=== PATIENT | female | born 2000 | race Asian ===

== ENCOUNTER 2025-02-02 10:21 | Inpatient (IN) ==
[2025-02-02 11:39] LABS: Appearance Urine Clear (Clear); Glucose Urine UA Negative (Negative)
[2025-02-02 12:09] LABS: Hematocrit (blood only) 35.7 % (37.0-47.0); Hemoglobin 12.3 g/dL (12.0-16.0); Immature Granulocytes # (auto) 0.01 K/uL (0.01-0.20); Immature Granulocytes % (auto) 0.2 %; Mean Corpuscular Hemoglobin 31.2 pg (25.0-34.0); Mean Corpuscular Volume 90.6 fL (80.0-100.0); Platelet Count 277 K/uL (130-400); RDW Standard Deviation 40.2 fL (36.4-46.3); Red Blood Count 3.94 M/uL (4.20-5.40); White Blood Count 4.66 K/ul (4.8-10.8)
--- NOTE | 2025-02-02 12:33 | Emergency Department Note ---
Impression & Plan Suicidal ideation, Insomnia ED Provider Note HISTORY OF PRESENT ILLNESS: Patient is a 24-year-old female presenting for mental health evaluation. Patient is a [employer] student. She reports that she has not been able to sleep for the last few days. States that she has been taking trazodone to try to help her sleep and has not been working. Reports that a few days ago she took extra medications and "the hopes that I would not wake up at all." She states that today she took trazodone at around midnight and still could not fall asleep and then took 1 dose of Ativan and 1 dose of another medication at around 8 AM and has still been unable to fall asleep. She denies any homicidal ideation. Denies any auditory or visual hallucinations. She was not trying to kill herself this morning. She states "I just want a fall asleep." She has been seen in outpatient setting with [facility]. No recent changes to medications. Patient denies ever being admitted to an inpatient psychiatric facility before. 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 States that in high school she did attempt suicide by overdosing on medications. Denies any visual or auditory hallucinations. ROS: as above PHYSICAL EXAM: Constitutional: Patient appears in no acute distress. HENT: Head: Normocephalic and atraumatic. Eyes: EOMI, PERRL Mouth/Throat: Mucous membranes moist. Neck: Trachea midline. Neck supple. Musculoskeletal: No edema, tenderness or deformity noted. Skin: Warm and dry. No rash, erythema, pallor or cyanosis Psychiatric: Flat affect. Makes poor eye contact. Neurological: Alert and keenly responsive. CN II-XII grossly intact, moving all extremities equally and fully. MDM: - Vitals signs showed tachycardia. - History obtained via patient. History as above. - Chronic conditions affecting care: Anxiety/depression - Differential diagnoses include, but are not limited to: Depression; psychosis; medication side effect; alcohol intoxication; drug intoxication; UTI - External medical records reviewed. - Laboratory workup interpreted by myself showed normal WBC; stable electrolytes other than slight hypokalemia; negative hCG; normal TSH; negative salicylate/acetaminophen/alcohol levels - COVID negative - UA negative for infection - UDS positive for MDMA - Patient seen in conjunction with behavioral health case management. Patient was agreeable to inpatient psychiatric admission is a 201. Bed search was initiated and referral up to [facility] inpatient unit [address] [place] [address] was made. Pending at this time. - Prior to disposition, care of patient was checked out to Dr. Jarquin following a discussion of the patient's course. ASSESSMENT AND PLAN: Diagnosis: Suicidal ideation; insomnia Past Med/Surg History Problem List (Updated 02/02/25 @ 14:27 by Suma Pagan MD) Insomnia (Acute) Suicidal ideation (Acute) Social History Smoking Status: Never smoker Feels Safe at Home: Yes Allergies Allergies Allergy/AdvReac Type Severity Reaction Status Date / Time No Known Allergies Allergy Unverified 02/02/25 12:05 Home Meds Home Medications Medication Instructions Recorded Confirmed fluoxetine 20 mg capsule 20 mg PO DAILY 02/02/25 02/02/25 quetiapine 12.5 mg PO HS 02/02/25 02/02/25 trazodone 50 mg tablet 50 mg PO HS PRN Insomnia 02/02/25 02/02/25 Results & Data (ED) Vital Signs Vital Signs - 24 hr 02/02/25 10:27 02/02/25 14:22 Temperature 36.5 C Temperature Source Temporal Artery Scan Pulse Rate 103 H Pulse Rate [Finger] 72 Pulse Rhythm [Finger] Regular Pulse Strength [Finger] Normal Respiratory Rate 16 Respiratory Effort / Characteristics Non-Labored Spontaneous Respiratory Depth Normal Respiratory Pattern Regular Blood Pressure 103/71 Blood Pressure [Right Arm] 91/61 L Blood Pressure Mean 81 Blood Pressure Mean [Right Arm] 71 Blood Pressure Position [Right Arm] Lying Pulse Oximetry 97 98 Oxygen Delivery Method Room Air Room Air Sepsis Recent Fever Within 48 Hours No Sepsis New/Unexplained Change in Mental Status N/A Sepsis Action Taken by Nursing No Action Required Laboratory Data 02/02/25 11:35 02/02/25 11:35 Lab Results 02/02/25 02/02/25 02/02/25 Range/Units 10:53 10:54 11:35 WBC 4.66 L (4.8-10.8) K/ul RBC 3.94 L (4.20-5.40) M/uL Hgb 12.3 (12.0-16.0) g/dL Hct 35.7 L (37.0-47.0) % MCV 90.6 (80.0-100.0) fL MCH 31.2 (25.0-34.0) pg MCHC 34.5 (32.0-36.0) g/dL RDW Std Deviation 40.2 (36.4-46.3) fL RDW Coeff of Jignesh 12.0 (11.5-14.5) % Plt Count 277 (130-400) K/uL MPV 9.2 L (9.4-12.4) fL Immature Gran % (Auto) 0.2 % Neut % (Auto) 41.7 % Lymph % (Auto) 44.8 % Isabella % (Auto) 6.0 % Eos % (Auto) 6.4 % Baso % (Auto) 0.9 % Neut # (Auto) 1.94 (1.40-6.50) K/uL Lymph # (Auto) 2.09 (1.20-3.40) K/uL Isabella # (Auto) 0.28 (0.11-0.59) K/uL Eos # (Auto) 0.30 (0.00-0.50) K/uL Baso # (Auto) 0.04 (0.00-0.20) K/uL Immature Gran # (Auto) 0.01 (0.01-0.20) K/uL Sodium 138 (136-145) mmol/L Potassium 3.4 L (3.5-5.1) mmol/L Chloride 108 H (98-107) mmol/L Carbon Dioxide 23 (21-32) mmol/L Anion Gap 7 (3-11) BUN 10 (6-23) mg/dl Creatinine 0.50 L (0.6-1.2) mg/dl Est Cr Clr Drug Dosing 125.4 ml/min eGFR 134.23 BUN/Creatinine Ratio 20.0 (10-20) Glucose 89 (70-99(Fasting)) mg/dl Calcium 8.9 (8.6-10.3) mg/dl Total Bilirubin 0.5 (0.2-1.0) mg/dl AST 13 (13-39) U/L ALT 9 (7-52) U/L Alkaline Phosphatase 59 (34-104) U/L Total Protein 6.8 (6.0-8.3) gm/dl Albumin 3.9 (3.4-5.0) gm/dl Globulin 2.9 (2.5-4.0) gm/dl Albumin/Globulin Ratio 1.3 (0.9-2) TSH 2.768 (0.300-4.500) uIu/ml Urine Color Yellow Urine Appearance Clear (Clear) Urine pH 6.0 (4.5-7.5) Ur Specific [place] 1.026 (1.000-1.030) Urine Protein Negative (Negative) Urine Glucose (UA) Negative (Negative) Urine Ketones Trace H (Negative) Urine Blood Negative (Negative) Urine Nitrite Negative (Negative) Urine Bilirubin Negative (Negative) Urine Urobilinogen Negative (Negative) Ur Leukocyte Esterase Negative (Negative) Urine Test Negative (Negative) Urine Comment Salicylates < 3.0 L (3.0-30) mg/dl Urine Opiates Screen Neg (Neg) Ur Methadone, Qual Neg (Neg) Urine Fentanyl Screen Neg (Neg) Acetaminophen < 3 L (10-30) ug/ml Urine Barbiturates Neg (Neg) Ur Phencyclidine (PCP) Neg (Neg) U Amphetamin/Meth Scrn Neg (Neg) MDMA (Ecstasy) Screen Pos H (Neg) U Benzodiazepines Scrn Neg (Neg) Ur Cocaine Metabolite Neg (Neg) U Marijuana (THC) Screen Neg (Neg) Ethyl Alcohol mg/dL < 10.0 (<10.0) mg/dl SARS-CoV-2, RNA, NAAT NEGATIVE (NEGATIVE) Discharge Plan Visit Data Chief Complaint: Mental Health Evaluation Stated Complaint: CHEST PAIN, HARD TO BREATHE, SUICIDAL THOUGHTS ED Provider: Suam Pagan Discharge Problem: Suicidal ideation, Insomnia Patient Disposition: Still a Patient Condition: Fair Forms Stand Alone Forms: [facility], Suicide Prevention Resources Prescriptions Prescriptions: No Action fluoxetine 20 mg capsule 20 mg PO DAILY trazodone 50 mg tablet 50 mg PO HS PRN (Reason: Insomnia) quetiapine 12.5 mg PO HS Referrals Referrals: [facility] [Primary Care Provider] -
[2025-02-02 12:43] LABS: Acetaminophen < 3 ug/ml (10-30); Salicylate < 3.0 mg/dl (3.0-30)
[2025-02-02 12:43] LABS: Amphetamines+Metham, Urine Neg (Neg); MDMA (Ecstacy), Urine Pos (Neg); Marijuana, Urine Neg (Neg)
[2025-02-02 12:49] LABS: Alanine Aminotransferase 9.0 U/L (7-52); Albumin Globulin Ratio 1.3 (0.9-2); Albumin Level 3.9 gm/dl (3.4-5.0); Alkaline Phosphatase 59.0 U/L (34-104); Anion Gap 7.0 (3-11); Bilirubin,Total 0.5 mg/dl (0.2-1.0); Blood Urea Nitrogen 10.0 mg/dl (6-23); Calcium 8.9 mg/dl (8.6-10.3); Carbon Dioxide 23.0 mmol/L (21-32); Chloride 108.0 mmol/L (98-107); Creatinine Clr Calc Pharmacy 125.4 ml/min; Globulin 2.9 gm/dl (2.5-4.0); Glucose 89.0 mg/dl (70-99(Fasting)); Potassium 3.4 mmol/L (3.5-5.1); Sodium 138.0 mmol/L (136-145); Total Protein 6.8 gm/dl (6.0-8.3)
[2025-02-02 13:03] LABS: Thyroid Stimulating Hormone 2.768 uIu/ml (0.300-4.500)
[2025-02-02] MEDS ORDERED: SODIUM CHLORIDE 0.65% NA SOLN 45 ML (OCEAN) PRN (18:56)
[2025-02-02] MEDS ORDERED: BISMUTH SUBSALICYLATE 262 MG CHEW PO PRN (18:56)
[2025-02-02] MEDS ORDERED: MAGNESIUM HYDROXIDE SUSP 30 ML UDC PO PRN (18:56)
[2025-02-02] MEDS ORDERED: ALUMINUM/MAGNESIUM SUSP 30 ML UDC PO PRN (18:56)
[2025-02-02] MEDS ORDERED: clonazePAM 0.5 MG TAB PO PRN (19:26)
--- NOTE | 2025-02-03 09:15 | History & Physical ---
Date of Service February 03, 2025 Impression / Recommendations Impression CHELY VANEGAS is a 24-year-old woman and international [employer] student from [place] who currently lives in on campus alone, has a history of chronic depression, anxiety, and insomnia starting this summer, and was admitted on 02/02/25 17:40 on a 302 involuntary commitment for depression and suicide attempt. Diagnostically consistent with unspecified depression with differential including major depressive disorder versus persistent depressive disorder (but sounds like mood had been better this summer prior to returning to college) as well as egenralized anxiety disorder with panic attacks and insomnia. Discussed medication treatment options in detail. Discussed risks, benefits and alternatives. Patient would like to start and consented to ongoing use of fluoxetine for depression/anxiety, ongoing use of clonazepam as off-label for sleep given prolonged recent use and uncertainty of safety of abrupt discontinuation due to unclear dosing from [place] script and mirtazapine for depression/anxiety/insomnia/increased appetite. Reviewed side effects including but not limited to: GI, TRAN, sexual side effects, and counseled on black box warning of potential for emergence of or increased SI and need to let staff know should this occur or should they feel unsafe. Also discussed importance of seeking emergency care following discharge if this side effect occurs in the future with fluoxetine; addictive potential/respiratory suppression/dizziness with clonazepam; sedation/weight gain with mirtazapine. Overall I spent a total of 75 minutes for this admission including review of chart records, review of labwork, direct evaluation of the patient (62 minutes), counseling the patient, ordering medication, risk assessment, discussion with the psychiatric liason RN and documentation in the electronic health record. (1) Depression with suicidal ideation: (2) Insomnia: (3) Suicidal ideation: (4) Overuse of medication: (5) Generalized anxiety disorder with panic attacks: Plan 02/03/2025: The patient was admitted to the [facility] ([facility] inpatient mental health unit) on q15 min checks (behavioral with suicide precautions) for safety. The patient will participate in group, recreational, and milieu therapies and will be offered additional individual and family sessions as clinically appropriate. -Medications: * continue fluoxetine 20mg * start mirtazapine 15mg HS * continue clonazepam-use dose of 0.25mg HS * discontinue Seroquel -Symptom questionnaires: MDQ, PHQ-9, OLI-7, [place] BPD, LUZ MARINA -SW to coordinate with student care and advocacy and [facility]S Inventory Assets Strengths: supportive relationships, wants to continue with schooling Needs: safety and stabilization, medication adjustment, additional coping skills, increased outpatient services Suicide Risk Level Suicide Risk Level: High-Moderate (q15 min suicide checks) (increased depression and two recent suicide attempts vs rehearsal behaviors with ambivalence about being alive, currently denies SI and feels safe in the hospital and feels able to ask for support if needed) Suicide Risk Level Comments: Risk Factors Assessment Male: No : No Do You Have Access To A Gun?: No Health Problems: No Mental Health Diagnoses: Yes Substance Use Disorders: No Previous Attempt: Yes Family History of Suicide: No Previous Psychiatric Hospitalization: No Hopelessness: Yes (some) Protective Factors Assessment 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 Chief Complaint "I needed time to think about that". History of Present Illness She presents for psychiatric admission for worsening depression and SI with rehearsal behaviors vs attempt by taking 3 extra doses of trazodone and then an extra dose of Seroquel and Klonopin with dual goal of getting to sleep and not waking up. 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 She's had a lot of pressure to apply for jobs and internships and feels overwhelmed by not having access to her electronics in the hospital. She reports feeling "neutral" about surviving her overdose attempt. She denies current SI which she attributes the improvement to thinking more about her goals and fulfilling her classes and "not spiraling" like she did in her dorm room. She finds she "overthinks a lot". 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 Suicidal thoughts started recently and have been coming and going. A days ago she took trazodone for the first time just to sleep and "I couldn't breath and extremely dizziness" and she researched side effects and saw this could happen so she stopped taking it. Then a few days ago she experienced SI and "I could not sleep" and "that's quite stressful" and "the second reason was I didn't want to wake up" so she took extra clonazepam (2 doses) and quetiapine (2 doses). She didn't research what would happen but she wanted to sleep and "I didn't want to wake up". The next morning when she did wake up she felt "neutral" about being alive. She endorses depressive symptoms including anhedonia, decreased motivation, hopelessness (she rates as 50/50), decreased energy, decreased appetite (she used to eat twice a day but recently only eating 0 to 1 meals per day), and decreased sleep ("my sleeping routine is really messed up", describes sleeping well when exhausted but sometimes she spends a lot of time worrying and struggles to fall asleep, on average sleeping 3-4 hours recently or not at all). She also endorses symptoms of anxiety including generalized worries, shakiness, easily overwhelmed and panic attacks. She is currently prescribed fluoxetine 20mg daily (just increased from 10mg to 20mg on 01/30/2025) and trazodone 50mg HS prn was also recently prescribed (01/30/2025, had side effects of breathing issues) and then from [place] has scripts for Klonopin of unknown dose (September 2024, just at bedtime for sleep, took every night) and Seroquel 12.5mg HS (September 2024, just for bedtime, took every night). She is also prescribed Xanax for panic attacks. She endorses history of trauma with occasional flashbacks never with night- terrors or flashbacks. Psychiatric ROS notable for no current nor history of symptoms of byron, psychosis, PTSD, OCD, self-harm nor eating disorder. Past Psychiatric History Current Psychiatric Diagnosis: Unspecified Depression Outpatient Services: [facility] for psychiatric medication (3-4 times) [facility] for therapy (4-5 times) Previous Psych Admissions: none Do You Have Access To A Gun?: No History of Previous Suicide Attempt: Yes Describe Attempts in the Past: 1x-~16 or 17 via cutting, more superficial cuts per her report Past Medication Trials: hx of "something else" "but I cannot remember what it is"-it was for depression/anxiety Past Head Trauma/Neuro History History of Concussion/Seizure: No Allergies Allergy/AdvReac Type Severity Reaction Status Date / Time No Known Allergies Allergy Unverified 02/03/25 11:28 Home Medications Medication Instructions Recorded Confirmed Type Klonopin HS 02/02/25 History fluoxetine 20 mg capsule 20 mg PO DAILY 02/02/25 02/02/25 History quetiapine 12.5 mg PO HS 02/02/25 History trazodone 50 mg tablet 50 mg PO HS PRN Insomnia 02/02/25 02/02/25 History Family History Family History of: Other-List under Comment (mother with insomnia and sees therapist every other week) Family Mental Health History Comment: Alcohol History Hx of Alcohol Use Over the Past 12 Months: No Smoking Use Have You Smoked or Used Tobacco Products in the Last 30 Days: No Smoking Status: Never smoker Substance History Hx of Prescription Med Misuse Over the Past 12 Months: No Hx of Over the Counter Med Misuse Over the Past 12 Months: No Hx of Inhalent Misuse Over the Past 12 Months: No Hx of Organic Substance Use Over the Past 12 Months: No Hx of Illegal Substances/Street Drug Use Over Past 12 Months: No Problems as a Result of Past Substance Use: None Identified Personal History Childhood: Parents live in [place], she's an only child Highest Grade Completed: Some College ([employer]) Employment Status: Student Marital Status: Single Number Of Children: none Beliefs That Will Affect Care: None Current Legal Problems: No Hx Legal Problems: No Additional Comments: Her parents know she is in the hospital Patient History Social History Smoking Status: Never smoker Preferred Language: Burkinan Communication Ability: Effective 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 Beliefs That Will Affect Care: None Feels Safe at Home: Yes Gender Identity: Female Assistive Devices: Glasses Review of Systems Review of Systems: All systems reviewed & are unremarkable except as noted in HPI & below Physical Exam Psychiatric: Orientation: alert and oriented x 3 Apperance: appropriately dressed and appropriately groomed Eye Contact: good eye contact Motor Behavior: no abnormal motor movements Speech: normal rate/rhythm/volume of speech Affect: + depressed affect, + anxious affect and + constricted affect Mood: + depressed mood and + anxious mood Thought Process: goal directed thought process Thought Content: reality based without delusions Suicidal Thoughts: denies suicidal thoughts (but s/p overdose/rehearsal behaviors), denies suicidal plan and denies suicidal intent Homicidal Thoughts: denies homicidal thoughts Hallucinations: no auditory hallucinations and no visual hallucinations Cognition: recent memory grossly intact, remote memory grossly intact, attention grossly intact and language grossly intact Estimated Intelligence: consistent with education level Insight: + fair insight Judgment: + fair judgement Vital Signs (Past 24 Hours): Last Vital Signs Temp 36.1 C L 02/03/25 06:44 Pulse 90 02/02/25 19:39 Resp 16 02/03/25 06:44 BP 82/58 L 02/03/25 06:47 Pulse Ox 98 02/03/25 06:44 O2 Del Method Room Air 02/03/25 06:44 Exam Statement: A physical exam was performed in the ED by Dr. Pagan for the purposes of medical clearance. I accept that physical as correct and adequate for the purposes of the inpatient physical exam. Results & Data ([facility]) Laboratory Results Laboratory Results - last 24 hr 02/02/25 02/02/25 02/02/25 10:53 10:54 11:35 WBC 4.66 L RBC 3.94 L Hgb 12.3 Hct 35.7 L MCV 90.6 MCH 31.2 MCHC 34.5 RDW Std Deviation 40.2 RDW Coeff of Jignesh 12.0 Plt Count 277 MPV 9.2 L Immature Gran % (Auto) 0.2 Neut % (Auto) 41.7 Lymph % (Auto) 44.8 White % (Auto) 6.0 Eos % (Auto) 6.4 Baso % (Auto) 0.9 Neut # (Auto) 1.94 Lymph # (Auto) 2.09 White # (Auto) 0.28 Eos # (Auto) 0.30 Baso # (Auto) 0.04 Immature Gran # (Auto) 0.01 Sodium 138 Potassium 3.4 L Chloride 108 H Carbon Dioxide 23 Anion Gap 7 BUN 10 Creatinine 0.50 L Est Cr Clr Drug Dosing 125.4 eGFR 134.23 BUN/Creatinine Ratio 20.0 Glucose 89 Calcium 8.9 Total Bilirubin 0.5 AST 13 ALT 9 Alkaline Phosphatase 59 Total Protein 6.8 Albumin 3.9 Globulin 2.9 Albumin/Globulin Ratio 1.3 TSH 2.768 Urine Color Yellow Urine Appearance Clear Urine pH 6.0 Ur Specific [place] 1.026 Urine Protein Negative Urine Glucose (UA) Negative Urine Ketones Trace H Urine Blood Negative Urine Nitrite Negative Urine Bilirubin Negative Urine Urobilinogen Negative Ur Leukocyte Esterase Negative Urine Test Negative Urine Comment Salicylates < 3.0 L Urine Opiates Screen Neg Ur Methadone, Qual Neg Urine Fentanyl Screen Neg Acetaminophen < 3 L Urine Barbiturates Neg Ur Phencyclidine (PCP) Neg U Amphetamin/Meth Scrn Neg Urine MDEA Pending MDMA (Ecstasy) Screen Pos H MDMA Pending Urine MDMA Pending U Benzodiazepines Scrn Neg Ur Cocaine Metabolite Neg U Marijuana (THC) Screen Neg Ethyl Alcohol mg/dL < 10.0 SARS-CoV-2, RNA, NAAT NEGATIVE Current Inpatient Medications Current Inpatient Medications: Current Inpatient Medications Acetaminophen (Acetaminophen 325 Mg Tab) 650 mg PO Q4H PRN PRN Reason: Headache or Minor Fever Stop: 03/04/25 18:55 Al Hydrox/Mg Hydrox/Simethicone (Aluminum/Magnesium Susp 30 Ml Udc) 30 ml PO Q4H PRN PRN Reason: GI Upset Stop: 03/04/25 18:55 Bismuth Subsalicylate (Bismuth Subsalicylate 262 Mg Chew) 2 tab PO Q30M PRN PRN Reason: Loose Stool/Diarrhea Stop: 03/04/25 18:55 Clonazepam (Clonazepam 0.5 Mg Tab) 0.25 mg PO BID PRN PRN Reason: panic attacks Stop: 03/04/25 19:25 Fluoxetine HCl (Fluoxetine Hcl 20 Mg Cap) 20 mg PO QAM THUY Stop: 03/05/25 08:59 Hydroxyzine HCl (Hydroxyzine Hcl 25 Mg Tab) 50 mg PO HSZ PRN PRN Reason: Insomnia Stop: 03/04/25 18:55 Hydroxyzine HCl (Hydroxyzine Hcl 25 Mg Tab) 25 mg PO Q4H PRN PRN Reason: Anxiety Stop: 03/04/25 18:55 Magnesium Hydroxide (Magnesium Hydroxide Susp 30 Ml Udc) 30 ml PO DAILY PRN PRN Reason: Constipation Stop: 03/04/25 18:55 Quetiapine Fumarate (Quetiapine Fumarate 25 Mg Tablet) 12.5 mg PO HS THUY Stop: 03/04/25 21:59 Last Admin: 02/02/25 21:03 Dose: 12.5 mg Sodium Chloride (Sodium Chloride 0.65% Na Soln 45 Ml ([place])) 1 - 2 sprays NA PRN PRN PRN Reason: Nasal Dryness/Congestion Stop: 03/04/25 18:55 Trazodone HCl (Trazodone Hcl 50 Mg Tab) 50 mg PO HS PRN PRN Reason: insomnia Stop: 03/04/25 19:25
[2025-02-03] MEDS ORDERED: MIRTAZAPINE TAB 15 MG TAB PO PRN (16:19)
[2025-02-03] MEDS: clonazePAM 0.5 MG TAB PO SCH (22:00)
[2025-02-03] MEDS: MIRTAZAPINE TAB 15 MG TAB PO SCH (22:01)
--- NOTE | 2025-02-04 09:02 | Psychiatric Progress Note ---
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 Diagnostically consistent with unspecified depression with differential including major depressive disorder versus persistent depressive disorder (but sounds like mood had been better this summer prior to returning to college) as well as generalized anxiety disorder with panic attacks and insomnia. A: Anxiety and engagement seem to be improving. Anxiety remains, but depressed mood is also improving. Sleep was better last night. Discussed the importance of balancing breaks/rest with productivity after discharge here, and patient was receptive to that feedback. Also discussed the importance of utilizing supports, and she is considering scheduling a support meeting with a close friend. No medication changes today, as she just started on mirtazapine last night. As needed Vistaril is available if anxiety continues. Blood pressures have been low, but we are suspecting she may need a smaller blood pressure cuff for an accurate reading, which nursing is looking into today. She is not reporting symptoms of hypotension, And is eating and drinking well. Overall, I spent a total of 35 minutes on this patient's care, including review of chart/records, direct evaluation of the patient, coordination with nursing, interdisciplinary team meeting, and documentation. (1) Depression with suicidal ideation: (2) Insomnia: (3) Suicidal ideation: (4) Overuse of medication: (5) Generalized anxiety disorder with panic attacks: Plan 02/04/25: Continue current medications and treatment. 02/03/2025: The patient was admitted to the [facility] on q15 min checks (behavioral with suicide precautions) for safety. The patient will participate in group, recreational, and milieu therapies and will be offered additional individual and family sessions as clinically appropriate. -Medications: * continue fluoxetine 20mg * start mirtazapine 15mg HS * continue clonazepam-use dose of 0.25mg HS * discontinue Seroquel -Symptom questionnaires: MDQ, PHQ-9, OLI-7, Wooten BPD, LUZ MARINA -SW to coordinate with student care and advocacy and CAPS Inventory Assets Strengths: supportive relationships, wants to continue with schooling Needs: safety and stabilization, medication adjustment, additional coping skills, increased outpatient services Suicide Risk Level Suicide Risk Level: High-Moderate (q15 min suicide checks) (increased depression and two recent suicide attempts vs rehearsal behaviors with ambivalence about being alive, currently denies SI and feels safe in the hospital and feels able to ask for support if needed) Suicide Risk Level Comments: Risk Factors Assessment Male: No : No Do You Have Access To A Gun?: No Health Problems: No Mental Health Diagnoses: Yes Substance Use Disorders: No Previous Attempt: Yes Family History of Suicide: No Previous Psychiatric Hospitalization: No Hopelessness: Yes (some) Protective Factors Assessment 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 Review of Systems Sleep Information Total Hours of Sleep: 6.25 Meal Information Percent Meal Consumed - Breakfast: 70 Percent Meal Consumed - Lunch: 100 Percent Meal Consumed - Dinner: 90 Subjective Subjective Patient was seen & assessed and interval progress reviewed with nursing and social work per report: attending groups mood 7-8 and "bored" wants 302 expunged adamantly denying SI good appetite sleeping well out of room declined support meeting d/c thursday? I met with the patient privately in her room. She says she is starting to feel better. She commented that she slept very well, and that has improved her mood today. She did not feel groggy this morning. Discussed her ongoing stressors. She acknowledges it is "nice to get a break" from her devices and the constant pressure to be applying for internships and checking the status of those applications. She graduates in the spring or summer of this year. 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 She has been attending groups and appreciates it. She used the exercise bike this morning. She is very concerned about the cost of her stay here, and requested specific information about whether meeting individually with staff would increase the cost. She wrote notes from group that she attended it, and has been reflecting on her past experiences and how they affect her anxiety. She is hopeful for a short stay. She denies any further suicidal ideation. Anxiety remains moderate. No side effects such as GI symptoms, headaches, tremor or any other physical symptoms. She is planning on several friends visiting today. Physical Exam Psychiatric Orientation: alert, oriented x 3 and cooperative Apperance: appropriately dressed, appropriately groomed and appeared stated age Eye Contact: good eye contact Motor Behavior: steady gait and station and no abnormal motor movements; n tremor Speech: normal rate/rhythm/volume of speech Affect: + anxious affect and + constricted affect Mood: + anxious mood Thought Process: goal directed thought process, linear/logical thought process and clear/coherent thought process Thought Content: + cognitive distortions and reality based without delusions Suicidal Thoughts: denies suicidal thoughts, denies suicidal plan and denies suicidal intent Homicidal Thoughts: denies homicidal thoughts, denies homicidal plan and denies homicidal intent Hallucinations: no auditory hallucinations and no visual hallucinations Cognition: recent memory grossly intact, remote memory grossly intact, attention grossly intact and language grossly intact Estimated Intelligence: consistent with education level Insight: good insight Judgment: good judgement Vital Signs (Past 24 Hours) Last Vital Signs Temp 36.6 C 02/04/25 06:17 Pulse 69 02/04/25 06:19 Resp 16 02/04/25 06:17 BP 88/66 L 02/04/25 06:19 Pulse Ox 98 02/03/25 06:44 O2 Del Method Room Air 02/03/25 06:44 Results & Data ([facility]) Current Inpatient Medications Current Inpatient Medications: Current Inpatient Medications Acetaminophen (Acetaminophen 325 Mg Tab) 650 mg PO Q4H PRN PRN Reason: Headache or Minor Fever Stop: 03/04/25 18:55 Al Hydrox/Mg Hydrox/Simethicone (Aluminum/Magnesium Susp 30 Ml Udc) 30 ml PO Q4H PRN PRN Reason: GI Upset Stop: 03/04/25 18:55 Bismuth Subsalicylate (Bismuth Subsalicylate 262 Mg Chew) 2 tab PO Q30M PRN PRN Reason: Loose Stool/Diarrhea Stop: 03/04/25 18:55 Clonazepam (Clonazepam 0.5 Mg Tab) 0.25 mg PO HS THUY Stop: 03/05/25 21:59 Last Admin: 02/03/25 22:00 Dose: 0.25 mg Fluoxetine HCl (Fluoxetine Hcl 20 Mg Cap) 20 mg PO QAM THUY Stop: 03/05/25 08:59 Last Admin: 02/03/25 09:49 Dose: 20 mg Hydroxyzine HCl (Hydroxyzine Hcl 25 Mg Tab) 50 mg PO HSZ PRN PRN Reason: Insomnia Stop: 03/04/25 18:55 Hydroxyzine HCl (Hydroxyzine Hcl 25 Mg Tab) 25 mg PO Q4H PRN PRN Reason: Anxiety Stop: 03/04/25 18:55 Magnesium Hydroxide (Magnesium Hydroxide Susp 30 Ml Udc) 30 ml PO DAILY PRN PRN Reason: Constipation Stop: 03/04/25 18:55 Mirtazapine (Mirtazapine Tab 15 Mg Tab) 15 mg PO HS THUY Stop: 03/05/25 21:59 Last Admin: 02/03/25 22:01 Dose: 15 mg Mirtazapine (Mirtazapine Tab 15 Mg Tab) 15 mg PO HS PRN PRN Reason: insomnia Stop: 03/05/25 16:18 Sodium Chloride (Sodium Chloride 0.65% Na Soln 45 Ml ([place])) 1 - 2 sprays NA PRN PRN PRN Reason: Nasal Dryness/Congestion Stop: 03/04/25 18:55 Mental Health & Subst Abuse Tx Psychiatrist Name of Psychiatrist: KAROL-Dr. Juanita Vogt Psychiatrist's Date Of Appointment With Psychiatric Provider: 02/09 Time of Appointment with Psychiatrist: [place] Therapist Name of Therapist: KAROL Therapist's Post Discharge Appointments Primary Care Physician Name Of Family Doctor/PCP: Juan Miguel Contact Information Discharge Discharge Address: [place] [address]
--- NOTE | 2025-02-05 09:45 | Psychiatric Progress Note ---
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 Diagnostically consistent with unspecified depression with differential including major depressive disorder versus persistent depressive disorder (but sounds like mood had been better this summer prior to returning to college) as well as generalized anxiety disorder with panic attacks and insomnia. A: Discussed together the benefits of conscientiousness and preparedness versus the drawbacks of excessive overthinking, which can actually decrease indecisiveness and problem-solving. Patient was able to self identify signs that she is entering an unhelpful level of overthinking. reviewed ways she can bring herself down from an anxious state and put a stop to overthinking. Also encouraged her to complete her safety plan today. Since she is having some oversedation, will decrease Remeron and see if that is helpful. Discussed that she can also continue to adjust that dose with her outpatient provider. Planning for discharge tomorrow after her support meeting. Overall, I spent a total of 37 minutes on this patient's care, including review of chart/records, direct evaluation of the patient, coordination with nursing, interdisciplinary team meeting, and documentation. (1) Depression with suicidal ideation: (2) Insomnia: (3) Suicidal ideation: (4) Overuse of medication: (5) Generalized anxiety disorder with panic attacks: Plan 02/05/25: Decrease Remeron to 7.5 mg nightly 02/04/25: Continue current medications and treatment. 02/03/2025: The patient was admitted to the [facility] ([facility] mental health unit) on q15 min checks (behavioral with suicide precautions) for safety. The patient will participate in group, recreational, and milieu therapies and will be offered additional individual and family sessions as clinically appropriate. -Medications: * continue fluoxetine 20mg * start mirtazapine 15mg HS * continue clonazepam-use dose of 0.25mg HS * discontinue Seroquel -Symptom questionnaires: MDQ, PHQ-9, OLI-7, Wooten BPD, LUZ MARINA -SW to coordinate with student care and advocacy and CAPS Inventory Assets Strengths: supportive relationships, wants to continue with schooling Needs: safety and stabilization, medication adjustment, additional coping skills, increased outpatient services Suicide Risk Level Suicide Risk Level: Moderate (q15 min suicide checks) (increased depression and two recent suicide attempts vs rehearsal behaviors with ambivalence about being alive, currently denies SI and feels safe in the hospital and feels able to ask for support if needed) Suicide Risk Level Comments: Risk Factors Assessment Male: No : No Do You Have Access To A Gun?: No Health Problems: No Mental Health Diagnoses: Yes Substance Use Disorders: No Previous Attempt: Yes Family History of Suicide: No Previous Psychiatric Hospitalization: No Hopelessness: Yes (some) Protective Factors Assessment 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 Review of Systems Sleep Information Total Hours of Sleep: 8 Meal Information Percent Meal Consumed - Breakfast: 70 Percent Meal Consumed - Lunch: 0 Percent Meal Consumed - Dinner: 85 Subjective Subjective Patient was seen & assessed and interval progress reviewed with nursing and social work Per report: came out of room more towards the end of the day attended groups and participated well rated mood 10/02 and feeling "calmer" 2 visitors (both friends) - appeared to go well. She showed positive affect and was laughing. Spoke with parents last night Denying SI Scheduled support mtg for tomorrow AM no BM since 02/01 I met with the patient privately in her room. She says 'I'm feeling a little calmer." Also feels that depression is getting better. However she does feel tired today. She says she slept 9 or 10 hours, and was so tired she was trying to nap before lunch. She does report that visits with her friends went well yesterday. She is feeling ready to return home. Discussed her increasing awareness of her own symptoms. She identified that she "is an over thinker." She also identified a goal of minimizing rumination at bedtime, so she can prio ritize sleep. She also plans to go to the gym regularly as a coping skill. She denies any side effects other than feeling tired. She is not having any further suicidal ideation. Physical Exam Psychiatric Orientation: alert, oriented x 3 and cooperative Apperance: appropriately dressed, appropriately groomed and appeared stated age Eye Contact: good eye contact Motor Behavior: steady gait and station and no abnormal motor movements; n tremor Speech: normal rate/rhythm/volume of speech Affect: + anxious affect Full range. Brightens intermittently, does appear anxious at times. Thought Process: goal directed thought process, linear/logical thought process and clear/coherent thought process Thought Content: reality based without delusions + anxious rumination Suicidal Thoughts: denies suicidal thoughts, denies suicidal plan and denies suicidal intent Homicidal Thoughts: denies homicidal thoughts, denies homicidal plan and denies homicidal intent Hallucinations: no auditory hallucinations and no visual hallucinations Cognition: recent memory grossly intact, remote memory grossly intact, attention grossly intact and language grossly intact Estimated Intelligence: consistent with education level Insight: good insight Judgment: good judgement Vital Signs (Past 24 Hours) Last Vital Signs Temp 35.4 C L 02/05/25 06:00 Pulse 60 02/05/25 06:01 Resp 18 02/05/25 06:00 BP 92/66 L 02/05/25 06:01 Pulse Ox 100 02/05/25 06:00 O2 Del Method Room Air 02/05/25 06:00 Results & Data ([facility]) Current Inpatient Medications Current Inpatient Medications: Current Inpatient Medications Acetaminophen (Acetaminophen 325 Mg Tab) 650 mg PO Q4H PRN PRN Reason: Headache or Minor Fever Stop: 03/04/25 18:55 Al Hydrox/Mg Hydrox/Simethicone (Aluminum/Magnesium Susp 30 Ml Udc) 30 ml PO Q4H PRN PRN Reason: GI Upset Stop: 03/04/25 18:55 Bismuth Subsalicylate (Bismuth Subsalicylate 262 Mg Chew) 2 tab PO Q30M PRN PRN Reason: Loose Stool/Diarrhea Stop: 03/04/25 18:55 Clonazepam (Clonazepam 0.5 Mg Tab) 0.25 mg PO HS THUY Stop: 03/05/25 21:59 Last Admin: 02/04/25 21:37 Dose: 0.25 mg Fluoxetine HCl (Fluoxetine Hcl 20 Mg Cap) 20 mg PO QAM THUY Stop: 03/05/25 08:59 Last Admin: 02/05/25 09:39 Dose: 20 mg Hydroxyzine HCl (Hydroxyzine Hcl 25 Mg Tab) 50 mg PO HSZ PRN PRN Reason: Insomnia Stop: 03/04/25 18:55 Hydroxyzine HCl (Hydroxyzine Hcl 25 Mg Tab) 25 mg PO Q4H PRN PRN Reason: Anxiety Stop: 03/04/25 18:55 Magnesium Hydroxide (Magnesium Hydroxide Susp 30 Ml Udc) 30 ml PO DAILY PRN PRN Reason: Constipation Stop: 03/04/25 18:55 Mirtazapine (Mirtazapine Tab 15 Mg Tab) 15 mg PO HS THUY Stop: 03/05/25 21:59 Last Admin: 02/04/25 21:37 Dose: 15 mg Mirtazapine (Mirtazapine Tab 15 Mg Tab) 15 mg PO HS PRN PRN Reason: insomnia Stop: 03/05/25 16:18 Sodium Chloride (Sodium Chloride 0.65% Na Soln 45 Ml ([place])) 1 - 2 sprays NA PRN PRN PRN Reason: Nasal Dryness/Congestion Stop: 03/04/25 18:55 Mental Health & Subst Abuse Tx Psychiatrist Name of Psychiatrist: KAROL-Dr. Juanita Vogt Psychiatrist's Date Of Appointment With Psychiatric Provider: 02/09 Time of Appointment with Psychiatrist: 11 Therapist Name of Therapist: KAROL Therapist's Post Discharge Appointments Primary Care Physician Name Of Family Doctor/PCP: [facility] Contact [facility] [address]
[2025-02-05 12:35] LABS: MDA negative; MDEA negative; MDMA (Ecstasy) Urine, Confirm negative
[2025-02-05] MEDS: MIRTAZAPINE TAB 15 MG TAB PO SCH (20:43)
[2025-02-06] MEDS: ACETAMINOPHEN 325 MG TAB PO PRN (04:45)
[2025-02-06] MEDS ORDERED: DESTROY THIS MEDICATION ONE (09:44)
--- NOTE | 2025-02-06 10:39 | Discharge Summary ---
Date of Service February 06, 2025 History of Present Illness She presents for psychiatric admission for worsening depression and SI with rehearsal behaviors vs attempt by taking 3 extra doses of trazodone and then an extra dose of Seroquel and Klonopin with dual goal of getting to sleep and not waking up. 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 She's had a lot of pressure to apply for jobs and internships and feels overwhelmed by not having access to her electronics in the hospital. She reports feeling "neutral" about surviving her overdose attempt. She denies current SI which she attributes the improvement to thinking more about her goals and fulfilling her classes and "not spiraling" like she did in her dorm room. She finds she "overthinks a lot". 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 Suicidal thoughts started recently and have been coming and going. A days ago she took trazodone for the first time just to sleep and "I couldn't breath and extremely dizziness" and she researched side effects and saw this could happen so she stopped taking it. Then a few days ago she experienced SI and "I could not sleep" and "that's quite stressful" and "the second reason was I didn't want to wake up" so she took extra clonazepam (2 doses) and quetiapine (2 doses). She didn't research what would happen but she wanted to sleep and "I didn't want to wake up". The next morning when she did wake up she felt "neutral" about being alive. She endorses depressive symptoms including anhedonia, decreased motivation, hopelessness (she rates as 50/50), decreased energy, decreased appetite (she used to eat twice a day but recently only eating 0 to 1 meals per day), and decreased sleep ("my sleeping routine is really messed up", describes sleeping well when exhausted but sometimes she spends a lot of time worrying and struggles to fall asleep, on average sleeping 3-4 hours recently or not at all). She also endorses symptoms of anxiety including generalized worries, shakiness, easily overwhelmed and panic attacks. She is currently prescribed fluoxetine 20mg daily (just increased from 10mg to 20mg on 01/30/2025) and trazodone 50mg HS prn was also recently prescribed (01/30/2025, had side effects of breathing issues) and then from [place] has scripts for Klonopin of unknown dose (September 2024, just at bedtime for sleep, took every night) and Seroquel 12.5mg HS (September 2024, just for bedtime, took every night). She is also prescribed Xanax for panic attacks. She endorses history of trauma with occasional flashbacks never with night- terrors or flashbacks. Psychiatric ROS notable for no current nor history of symptoms of byron, psychosis, PTSD, OCD, self-harm nor eating disorder. Physical Exam Psychiatric Orientation: alert, oriented x 3 and cooperative Apperance: appropriately dressed and appropriately groomed Eye Contact: good eye contact Motor Behavior: steady gait and station and no abnormal motor movements; n tremor Speech: normal rate/rhythm/volume of speech Affect: + anxious affect and + constricted affect Mood: + anxious mood Thought Process: goal directed thought process, linear/logical thought process and clear/coherent thought process Thought Content: reality based without delusions Suicidal Thoughts: denies suicidal thoughts, denies suicidal plan and denies suicidal intent Homicidal Thoughts: denies homicidal thoughts, denies homicidal plan and denies homicidal intent Hallucinations: no auditory hallucinations and no visual hallucinations Cognition: recent memory grossly intact, remote memory grossly intact, attention grossly intact and language grossly intact Estimated Intelligence: consistent with education level Insight: good insight Judgment: good judgement Vital Signs (Past 24 Hours) Last Vital Signs Temp 36.4 C 02/06/25 10:07 Pulse 80 02/06/25 10:07 Resp 18 02/06/25 10:07 BP 93/67 L 02/06/25 10:07 Pulse Ox 98 02/06/25 10:07 O2 Del Method Room Air 02/06/25 05:01 Principal Diagnosis MDDR OLI Psychiatric Data See daily stay summary. In short, safety was maintained and the patient was cooperative with care. Medication changes included addition of Remeron 15mg, which was later decreased to 7.5mg, and they tolerated this well Overall, although she did report mild grogginess in the morning (but did not appear sedated). Patient reported significant improvement in mood and anxiety. she denied further suicidal ideation. She was visible out of her room and attended groups. She maintain ADLs independently, and appetite and sleep were within normal limits. A support meeting was held and safety plan was completed prior to discharge. Day of Discharge Assessment Today the patient voices readiness for discharge. They note improvement in mood and anxiety. They deny thoughts of harm to self or others. Thoughts are organized and they are clinically improved from admission. There is no evidence of psychosis. They improved in the hospital with support and medication adjustments. They agree to take medications as prescribed and keep follow-up bennie ointments. At the time of the discharge they are deemed to be stable and appropriate for outpatient level of care. They are not deemed to be at imminent risk of harm to self or others. They are aware of emergency and crisis services. Knows to call 911 or go to nearest emergency care center if in a crisis which cannot be handled as an outpatient. Transition of Care Transition Of Care Record: was reviewed with the patient Advance Directives Advance Directives Information Provided: Yes Advance Directives: No Mental Health Advance Directive: No Advance Directives on File: No Living Will: No Power of Product Marketing Consultant: No Advance Directives Reason:: Declines as Mental Health Visit. Suicide Risk Level Suicide Risk Level Comments: Acute risk is low given improvement in mood and denial of SI, lack of access to lethal means, improvement in sleep, improved hopefulness. Chronic risk is moderate given some non-modifiable risk factors: past suicide attempts, and psychiatric hospitalizations, but also with protective factors including supportive family and stable relationships. Counseled on ways to reduce acute and chronic risk including engaging with outpatient providers, using safety plan if needed, utilizing supports, taking medication, and using coping skills. Modifiable risk factors of anxiety and depression were addressed during hospitalization through development of new coping skills, support meeting, safety planning, and medication adjustments. 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) Stable Relationships: Yes Supportive Family: Yes Discharge Data Lab Results 02/02/25 02/02/25 02/02/25 10:53 10:54 11:35 WBC 4.66 L RBC 3.94 L Hgb 12.3 Hct 35.7 L MCV 90.6 MCH 31.2 MCHC 34.5 RDW Std Deviation 40.2 RDW Coeff of Jignesh 12.0 Plt Count 277 MPV 9.2 L Immature Gran % (Auto) 0.2 Neut % (Auto) 41.7 Lymph % (Auto) 44.8 [place] % (Auto) 6.0 Eos % (Auto) 6.4 Baso % (Auto) 0.9 Neut # (Auto) 1.94 Lymph # (Auto) 2.09 [place] # (Auto) 0.28 Eos # (Auto) 0.30 Baso # (Auto) 0.04 Immature Gran # (Auto) 0.01 Sodium 138 Potassium 3.4 L Chloride 108 H Carbon Dioxide 23 Anion Gap 7 BUN 10 Creatinine 0.50 L Est Cr Clr Drug Dosing 125.4 eGFR 134.23 BUN/Creatinine Ratio 20.0 Glucose 89 Calcium 8.9 Total Bilirubin 0.5 AST 13 ALT 9 Alkaline Phosphatase 59 Total Protein 6.8 Albumin 3.9 Globulin 2.9 Albumin/Globulin Ratio 1.3 TSH 2.768 Urine Color Yellow Urine Appearance Clear Urine pH 6.0 Ur Specific [place] 1.026 Urine Protein Negative Urine Glucose (UA) Negative Urine Ketones Trace H Urine Blood Negative Urine Nitrite Negative Urine Bilirubin Negative Urine Urobilinogen Negative Ur Leukocyte Esterase Negative Urine Test Negative Urine Comment Salicylates < 3.0 L Urine Opiates Screen Neg Ur Methadone, Qual Neg Urine Fentanyl Screen Neg Acetaminophen < 3 L Urine Barbiturates Neg Ur Phencyclidine (PCP) Neg U Amphetamin/Meth Scrn Neg Urine MDEA negative MDMA (Ecstasy) Screen Pos H MDMA negative Urine MDMA negative U Benzodiazepines Scrn Neg Ur Cocaine Metabolite Neg U Marijuana (THC) Screen Neg Ethyl Alcohol mg/dL < 10.0 SARS-CoV-2, RNA, NAAT NEGATIVE Hospital Course (1) Depression with suicidal ideation: (2) Insomnia: (3) Suicidal ideation: (4) Overuse of medication: (5) Generalized anxiety disorder with panic attacks: Plan 02/06/25: Discharge today after support meeting. Prescriptions were sent to [facility] pharmacy. School excuse was given, and patient will follow-up with student care and advocacy. She will be returning home to [place] on next week for the break. She has providers in [place], and utilizes [facility] when here for school. 02/05/25: Decrease Remeron to 7.5 mg nightly 02/04/25: Continue current medications and treatment. 02/03/2025: The patient was admitted to the [facility] ([facility] inpatient mental [facility]) on q15 min checks (behavioral with suicide precautions) for safety. The patient will participate in group, recreational, and milieu therapies and will be offered additional individual and family sessions as clinically appropriate. -Medications: * continue fluoxetine 20mg * start mirtazapine 15mg HS * continue clonazepam-use dose of 0.25mg HS * discontinue Seroquel -Symptom questionnaires: MDQ, PHQ-9, OLI-7, [place] BPD, LUZ MARINA -SW to coordinate with student care and advocacy and [facility] Psychiatrist Name of Psychiatrist: Kasia Vogt Psychiatrist's Date Of Appointment With Psychiatric Provider: 02/09/25 Time of Appointment with Psychiatrist: 10:15AM Psychiatrist Release of Information: Obtained, Reviewed and Signed Therapist Name of Therapist: KAROL Jeong (therapist) Therapist's Date of Therapist Appointment: 02/09/25 Time of Therapist Appointment: 11AM Therapist Release of Information: Obtained, Reviewed and Signed Post Discharge Appointments Primary Care Physician Name Of Family Doctor/PCP: DAMASO Other #1: Name of Aftercare Appointment: Student care and advocacy (post hospitalization zoom meeting - [facility]) Phone Number of Aftercare Appointment: [phone] Date of Aftercare Appointment: 02/08/25 Time of Aftercare Appointment: 2PM Contact Information Discharge Discharge Address: [facility] [address] [place] [address] Discharge Plan Discharge Items Patient Disposition: Home - Self-Care Reason For Visit: UNSPECIFIED DEPRESSIVE DISORDER Discharge Diagnosis: Major Depressive Disorder, recurrent Generalized Anxiety Disorder Condition on Discharge: Good Activity: Resume your previous activity Non-emergency contact: Primary Care Provider, Psychiatrist and Therapist Call non-emergency contact if: you have any medication questions and your symptoms worsen Follow-up/Referrals: [facility] [Primary Care Provider] - Diet: Regular Addtl Attending Provider Instructions: SPECIAL CARE INSTRUCTIONS: 1. Follow through with your scheduled aftercare appointments. If unable to keep an appointment, please call to reschedule. 2. Take your medication only as prescribed. Medication should not be changed or stopped without the approval of your doctor. In the event of worsening symptoms or concerns about side effects, contact your doctor immediately. 3. Utilize new healthy coping skills, anger management skills, and stress management skills learned during your hospitalization. Journal feelings and process them with a support person. Identify stressors or situations that may result in relapse, deterioration or inappropriate behaviors and develop a plan to deal with those issues. 4. If your coping skills are ineffective and you are in crisis, contact your outpatient providers for direction. If unable to reach your providers, please call the [facility] CRISIS LINE AT , go to the [facility] walk-in center at [address], [place], or go to the closest Emergency Room. 5. Avoid alcohol and un-prescribed drugs. 6. You have been provided with the Mental Health Advance Directives Pamphlet for your review. 7. Your condition is stable for discharge to outpatient level of care, but recovery is an ongoing process. Ifthoughts to harm yourself or others return, follow the safety plan developed during your stay. Planning for a safe return home includes securing weapons. Our treatment team recommends weaponsbe removed from the home until your outpatient provider reassesses your progress. In rare cases where the items themselvescannot be removed, guns and ammunitionshould be secured separatelyand keys stored by a reliable personoutside of the home. If you were admitted on an involuntary commitment, the police or other legal authorities may be involved in this process. AFTERCARE APPOINTMENTS: * Please call your insurance company prior to your scheduled appointment to confirm your aftercare providers are covered. Take your insurance information to your appointments. WHO TO CALL AND WHEN: Medical Emergencies: For questions or emergencies related to your hospital stay, please contact the Inpatient Behavioral Health Unit at [phone]. A ground nuclear weapons assembly officer is on-call 15/09 for the Behavioral Health Unit for emergencies At any time you feel your situation is an emergency, you may also call 911 immediately. Pending Studies at Discharge: No Stand-Alone Forms: [employer], Smoking Cessation Medications and DC Order Prescriptions: New clonazepam 0.5 mg Tablet 0.25 mg PO HS 30 Days Qty: 15 0RF mirtazapine 15 mg Tablet 7.5 mg PO HS 30 Days Qty: 15 0RF fluoxetine 20 mg Capsule 20 mg PO QAM 30 Days Qty: 30 0RF Discontinued fluoxetine 20 mg capsule 20 mg PO DAILY trazodone 50 mg tablet 50 mg PO HS PRN (Reason: Insomnia) quetiapine 12.5 mg PO HS Klonopin HS Discharge Orders: Discharge Order (Routine); Ordered 02/06/25 Ordered By: Ana Taylor Admission Data Admit Date/Time: 02/02/25 17:40 Attending Provider: Bess Schreiber Admit Provider: Bess Schreiber Primary Care Provider: [facility] Other Interventions: Discharge Summary Assessment (RN) Last Done: 02/06/25 09:13 Coding Level of Care Code 85372 D/C day mgmt > 30 min Diagnoses Depression with suicidal ideation F32.A; R45.851 Insomnia G47.00 Suicidal ideation R45.851 Overuse of medication Z91.148 Generalized anxiety disorder with panic attacks F41.1; F41.0
== END 2025-02-06 11:18 | disposition home or self-care (01) | DRG 885 ==
LOC: ED 10:21 → 3S 17:40